=== PATIENT | male | born 1990 | race Hispanic/Latino ===

== ENCOUNTER 2023-02-08 22:24 | Emergency (ER) | payer SELFPAY ==
[~2023-02-08] VITALS: Ht 175.3 cm; Wt 97.5 kg
[2023-02-08 23:05] VITALS: O2SAT 98
[2023-02-08] MEDS ORDERED: TYLENOL325 MG PO (23:18)
[2023-02-08] MEDS ORDERED: IBUPROFEN200 MG PO (23:18)
== END 2023-02-09 00:18 | disposition home or self-care (01) ==
LOC: FSED 22:27
DX: M79.632 Pain in left forearm (principal); X50.9XXA Other and unspecified overexertion or strenuous movements or postures, initial encounter; Y92.89 Other specified places as the place of occurrence of the external cause
CPT/HCPCS: 99283

== ENCOUNTER 2024-09-28 18:35 | Emergency (ER) | payer BC ==
[~2024-09-28] VITALS: Ht 175.3 cm; Wt 99.3 kg
[~2024-09-28 18:35] MED LIST: IBUPROFEN200 MG PO; ONDANSETRON ODT4 MG PO; PROTONIX20 MG PO; TYLENOL325 MG PO; ULTRAM 50MG50 MG PO
[2024-09-28] MEDS: KETOROLAC TROMETHAMINE 60 MG/2 ML VIAL IM ONE (20:29)
[2024-09-28 20:35] VITALS: PULSE 76; RESP 18; TEMP 98; O2SAT 97
== END 2024-09-28 20:37 | disposition home or self-care (01) ==
LOC: FSED 18:38
DX: M25.561 Pain in right knee (principal); M70.41 Prepatellar bursitis, right knee
CPT/HCPCS: 73562; 99283; J1885